=== PATIENT | female | born 1940 | race Caucasian/White ===

== ENCOUNTER 2023-11-04 06:17 | Outpatient (RCR) | payer MEDICARE, OTHER, SELFPAY | END 2023-11-04 23:59 | disposition home or self-care (01) | LOC: RPT 06:17 | PROVIDERS: ATTENDING PHYSICIAN Physician Assistant Medical; FAMILY PHYSICIAN Internal Medicine | DX: M17.12 Unilateral primary osteoarthritis, left knee (principal); R26.89 Other abnormalities of gait and mobility | CPT/HCPCS: 97110; 97162 ==